=== PATIENT | female | born 1980 | race African-American/Black ===

== ENCOUNTER 2016-10-17 08:03 | Emergency (ER) | payer MEDICAID, OTHER ==
[~2016-10-17] VITALS: Ht 170.2 cm; Wt 57.0 kg
[~2016-10-17 08:03] MED LIST: CLONAZEPAM; CLONIDINE; IBUPROFEN; MIRTAZAPINE; NORETHINDRONE; OXYCODONE; PAXIL
[2016-10-17] MEDS ORDERED: MORPHINE SULFATE 4 MG/ML CPJ (NOT FOR IM USE) IV STA (08:43)
[2016-10-17] MEDS ORDERED: SODIUM CHLORIDE 0.9% 1,000 ML IV ONE (08:43)
[2016-10-17] MEDS ORDERED: ONDANSETRON HCL 4MG/2ML VIAL IV STA (08:43)
[2016-10-17 09:06] LABS: BASOPHILS % 0.7 % (0.0-2.0); EOSINOPHILS % 1.3 % (0.0-5.0); HEMATOCRIT. 36.8 % (36.0-48.0); HEMOGLOBIN. 12.3 g/dL (12.0-16.0); MEAN CORPUSCULAR HEMOGLOBIN 28.5 pg (28.0-32.0); MEAN CORPUSCULAR VOLUME 85.4 fL (81.0-99.0); MEAN PLATELET VOLUME 7.5 fl (7.4-10.4); MONOCYTES % 4.7 % (2.0-8.0); NEUTROPHILS % 68.3 % (40.0-76.0); PLATELET 284 x1000/uL (130-400); RED BLOOD CELL COUNT 4.31 mill/uL (4.2-5.4); RED CELL DISTRIBUTION WIDTH 14.6 % (11.6-14.6)
[2016-10-17 09:21] LABS: CARBON DIOXIDE 23 mEq/L (21-32); CHLORIDE 107 mEq/L (98-107)
[2016-10-17] MEDS ORDERED: ONDANSETRON HCL 4MG/2ML VIAL IM ONE (09:30)
[2016-10-17] MEDS ORDERED: MORPHINE SULFATE 10 MG/ML CPJ IM ONE (09:30)
[2016-10-17 12:09] LABS: GLUCOSE URINE NEGATIVE (NEGATIVE); KETONES URINE 1+ (NEGATIVE); LEUKOCYTE ESTERASE URINE NEGATIVE (NEGATIVE); NITRITE URINE NEGATIVE (NEGATIVE); OCCULT BLOOD URINE NEGATIVE (NEGATIVE); PH URINE 7.5 (4.5-8.0); PROTEIN URINE NEGATIVE (NEGATIVE); SPECIFIC GRAVITY URINE 1.022 (1.005-1.030)
[2016-10-17 12:10] LABS: CLARITY URINE CLEAR (CLEAR); COLOR URINE YELLOW (YELLOW)
[2016-10-17] MEDS ORDERED: PROMETHAZINE 5 ML/6.25 MG 118ML LIQ PO ONE (12:45)
[2016-10-17] MEDS ORDERED: HYDROCODONE/APAP 7.5/325MG 1 TAB TABLET PO ONE (12:45)
[2016-10-17 13:47] VITALS: BP 105/67
== END 2016-10-17 14:05 | disposition home or self-care (01) ==
LOC: ER 08:29
DX: R10.2 Pelvic and perineal pain (principal); R11.2 Nausea with vomiting, unspecified; F11.20 Opioid dependence, uncomplicated; Z72.0 Tobacco use; Z88.6 Allergy status to analgesic agent
CPT/HCPCS: 36415; 76830; 76856; 80053; 81001; 83690; 85025; 96372; 99285; J2270; J2405; J7030; Z7610; Q0169

== ENCOUNTER 2016-11-29 17:48 | Emergency (ER) | payer OTHER ==
[~2016-11-29] VITALS: Ht 167.6 cm; Wt 57.0 kg
[~2016-11-29 17:48] MED LIST changes: -CLONAZEPAM; -CLONIDINE; -OXYCODONE; -PAXIL
[2016-11-29 18:02] VITALS: BP 133/108
== END 2016-11-29 20:35 | disposition left against medical advice (07) ==
LOC: ER 17:48
DX: R10.9 Unspecified abdominal pain (principal); Z53.21 Procedure and treatment not carried out due to patient leaving prior to being seen by health care provider

== ENCOUNTER 2016-12-01 19:57 | Emergency (ER) | payer OTHER ==
[~2016-12-01] VITALS: Ht 170.2 cm; Wt 57.0 kg
[2016-12-01] MEDS ORDERED: SODIUM CHLORIDE 0.9% 1,000 ML IV ONE (22:49)
[2016-12-01] MEDS ORDERED: ONDANSETRON HCL 4MG/2ML VIAL IV STA (22:49)
[2016-12-01] MEDS ORDERED: MORPHINE SULFATE 4 MG/ML CPJ (NOT FOR IM USE) IV STA (22:49)
[2016-12-01 23:42] LABS: BASOPHILS % 0.9 % (0.0-2.0); EOSINOPHILS % 2.7 % (0.0-5.0); HEMATOCRIT. 32.1 % (36.0-48.0); HEMOGLOBIN. 10.7 g/dL (12.0-16.0); MEAN CORPUSCULAR HEMOGLOBIN 28.7 pg (28.0-32.0); MEAN CORPUSCULAR VOLUME 86.5 fL (81.0-99.0); MEAN PLATELET VOLUME 7.4 fl (7.4-10.4); NEUTROPHILS % 45.4 % (40.0-76.0); PLATELET 274 x1000/uL (130-400); RED BLOOD CELL COUNT 3.72 mill/uL (4.2-5.4)
[2016-12-01 23:53] LABS: CARBON DIOXIDE 30 mEq/L (21-32); CHLORIDE 107 mEq/L (98-107); ETHANOL BLOOD < 10 mg/dL
[2016-12-02] MEDS ORDERED: HYDROCODONE/ACETAMINOPHEN 5/325MG TABLET PO ONE
[2016-12-02 00:19] LABS: GLUCOSE URINE NEGATIVE (NEGATIVE); KETONES URINE NEGATIVE (NEGATIVE); LEUKOCYTE ESTERASE URINE NEGATIVE (NEGATIVE); NITRITE URINE NEGATIVE (NEGATIVE); OCCULT BLOOD URINE NEGATIVE (NEGATIVE); PROTEIN URINE NEGATIVE (NEGATIVE); SPECIFIC GRAVITY URINE 1.029 (1.005-1.030)
[2016-12-02 00:22] LABS: CLARITY URINE CLEAR (CLEAR); COLOR URINE YELLOW (YELLOW)
[2016-12-02 00:50] LABS: *AMPHETAMINES SCREEN URINE NEGATIVE (NEGATIVE); *BARBITURATES SCREEN URINE NEGATIVE (NEGATIVE); *BENZODIAZEPINES SCREEN URINE NEGATIVE (NEGATIVE); *COCAINE SCREEN URINE PRESUMTIVE POSITIVE (NEGATIVE); CANNABINOID URINE SCREEN NEGATIVE (NEGATIVE); METHADONE URINE SCREEN NEGATIVE (NEGATIVE); OPIATES URINE SCREEN PRESUMTIVE POSITIVE (NEGATIVE); PHENCYCLIDINE URINE SCREEN NEGATIVE (NEGATIVE)
[2016-12-02 02:00] VITALS: BP 110/64
[2016-12-02] MEDS ORDERED: CEFTRIAXONE SODIUM 250 MG/VIAL IM NR (02:30)
[2016-12-02] MEDS ORDERED: LIDOCAINE HCL 1% 20ML VIAL (Pyxis) INJ INFIL NR (02:30)
[2016-12-05 04:17] LABS: CHLAMYDIA TRACHOMATIS NAA Negative (Negative); NEISSERIA GONORRHOEAE NAA Negative (Negative)
== END 2016-12-02 02:00 | disposition home or self-care (01) ==
LOC: ER 20:44
DX: N73.9 Female pelvic inflammatory disease, unspecified (principal); N80.9 Endometriosis, unspecified; R03.0 Elevated blood-pressure reading, without diagnosis of hypertension; E86.0 Dehydration; F14.10 Cocaine abuse, uncomplicated; F11.10 Opioid abuse, uncomplicated; F12.90 Cannabis use, unspecified, uncomplicated; Z88.6 Allergy status to analgesic agent; Z90.89 Acquired absence of other organs; F17.210 Nicotine dependence, cigarettes, uncomplicated
CPT/HCPCS: 36415; 80053; 80305; 81003; 81025; 83690; 84702; 85025; 85610; 87210; 87491; 87591; 96361; 96372; 96374; 99284; C1893; G0482; J0696; J2405; J3490; J7030; Z7610

== ENCOUNTER 2016-12-10 07:04 | Emergency (ER) | payer OTHER ==
[~2016-12-10] VITALS: Ht 170.2 cm; Wt 57.0 kg
[2016-12-10 07:31] VITALS: BP 140/76
[2016-12-10 11:03] LABS: CLARITY URINE CLOUDY (CLEAR); COLOR URINE YELLOW (YELLOW); GLUCOSE URINE NEGATIVE (NEGATIVE); KETONES URINE TRACE (NEGATIVE); LEUKOCYTE ESTERASE URINE NEGATIVE (NEGATIVE); NITRITE URINE NEGATIVE (NEGATIVE); OCCULT BLOOD URINE 3+ (NEGATIVE); PH URINE 5.5 (4.5-8.0); PROTEIN URINE 1+ (NEGATIVE); SPECIFIC GRAVITY URINE 1.033 (1.005-1.030)
[2016-12-10 12:09] LABS: *AMPHETAMINES SCREEN URINE NEGATIVE (NEGATIVE); *BARBITURATES SCREEN URINE NEGATIVE (NEGATIVE); *BENZODIAZEPINES SCREEN URINE NEGATIVE (NEGATIVE); *COCAINE SCREEN URINE NEGATIVE (NEGATIVE); CANNABINOID URINE SCREEN NEGATIVE (NEGATIVE); METHADONE URINE SCREEN NEGATIVE (NEGATIVE); OPIATES URINE SCREEN NEGATIVE (NEGATIVE); PHENCYCLIDINE URINE SCREEN NEGATIVE (NEGATIVE)
== END 2016-12-10 15:53 | disposition left against medical advice (07) ==
LOC: ER 07:31
DX: Z53.21 Procedure and treatment not carried out due to patient leaving prior to being seen by health care provider (principal)
CPT/HCPCS: 80305; 81001

== ENCOUNTER 2016-12-24 18:29 | Emergency (ER) | payer OTHER ==
[~2016-12-24] VITALS: Ht 170.2 cm; Wt 57.0 kg
[2016-12-24 18:31] VITALS: BP 97/54
== END 2016-12-25 | disposition left against medical advice (07) ==
LOC: ER 21:43
DX: R11.2 Nausea with vomiting, unspecified (principal); Z53.21 Procedure and treatment not carried out due to patient leaving prior to being seen by health care provider

== ENCOUNTER 2016-12-25 18:32 | Inpatient (IN) | payer OTHER ==
[~2016-12-25] VITALS: Ht 168.9 cm; Wt 57.2 kg
[2016-12-26] MEDS ORDERED: ONDANSETRON HCL 4MG/2ML VIAL IV STA (01:44)
[2016-12-26] MEDS ORDERED: SODIUM CHLORIDE 0.9% 1,000 ML IV ONE (01:44)
[2016-12-26] MEDS ORDERED: MORPHINE SULFATE 4 MG/ML CPJ (NOT FOR IM USE) IV STA (01:44)
[2016-12-26] MEDS ORDERED: MORPHINE SULFATE 2 MG/ML CPJ (NOT FOR IM USE) IV SCH (02:00)
[2016-12-26 02:19] LABS: CHLORIDE 109 mEq/L (98-107)
[2016-12-26 02:23] LABS: BASOPHILS % 0.9 % (0.0-2.0); EOSINOPHILS % 1.5 % (0.0-5.0); HEMATOCRIT. 30.5 % (36.0-48.0); LYMPHOCYTES % 44.2 % (20.0-50.0); MEAN CORPUSCULAR HEMOGLOBIN 28.7 pg (28.0-32.0); MEAN CORPUSCULAR VOLUME 87.5 fL (81.0-99.0); MEAN PLATELET VOLUME 8.2 fl (7.4-10.4); MONOCYTES % 8.4 % (2.0-8.0); PLATELET 199 x1000/uL (130-400); RED BLOOD CELL COUNT 3.49 mill/uL (4.2-5.4); RED CELL DISTRIBUTION WIDTH 14.4 % (11.6-14.6)
[2016-12-26 02:28] LABS: CARBON DIOXIDE 25 mEq/L (21-32)
[2016-12-26 02:44] LABS: PROTHROMBIN TIME 10.1 sec (9.4-11.6)
[2016-12-26 02:53] LABS: HCG SCREEN NEGATIVE
[2016-12-26] MEDS ORDERED: POTASSIUM CHLORIDE 20MEQ TABLET SR PO ONE (06:30)
[2016-12-26 07:00] LABS: CLARITY URINE CLOUDY (CLEAR); COLOR URINE DARK YELLOW (YELLOW); GLUCOSE URINE NEGATIVE (NEGATIVE); KETONES URINE NEGATIVE (NEGATIVE); LEUKOCYTE ESTERASE URINE NEGATIVE (NEGATIVE); NITRITE URINE NEGATIVE (NEGATIVE); OCCULT BLOOD URINE NEGATIVE (NEGATIVE); PH URINE 6.5 (4.5-8.0); PROTEIN URINE 1+ (NEGATIVE); SPECIFIC GRAVITY URINE 1.045 (1.005-1.030)
[2016-12-26] MEDS ORDERED: MORPHINE SULFATE 4 MG/ML CPJ (NOT FOR IM USE) IV ONE (07:30)
[2016-12-26] MEDS ORDERED: MORPHINE SULFATE 2 MG/ML CPJ (NOT FOR IM USE) IV NR (07:50)
[2016-12-26 10:30] VITALS: BP 110/59
[2016-12-26 10:37] VITALS: BP 117/77
[2016-12-26] MEDS ORDERED: HYDROCODONE/ACETAMINOPHEN 10/325MG TABLET PO PRN (11:30)
[2016-12-26 12:00] VITALS: BP 120/56
[2016-12-26] MEDS ORDERED: TRAZODONE HCL 100MG TABLET PO SCH (21:00)
== END 2016-12-26 14:00 | disposition left against medical advice (07) | DRG 251 ==
LOC: ER 19:10 → 6EST 12-26 07:38 → EDBEDREQ 12-26 08:20 → ENRESERV 12-26 09:54
PROVIDERS: ADMIT Internal Medicine; ATTEND Internal Medicine
DX: R10.9 Unspecified abdominal pain (principal); E87.8 Other disorders of electrolyte and fluid balance, not elsewhere classified; E44.1 Mild protein-calorie malnutrition; F11.20 Opioid dependence, uncomplicated; E83.51 Hypocalcemia; F99 Mental disorder, not otherwise specified; Z53.21 Procedure and treatment not carried out due to patient leaving prior to being seen by health care provider; F17.200 Nicotine dependence, unspecified, uncomplicated; G89.29 Other chronic pain; Z90.49 Acquired absence of other specified parts of digestive tract; Z88.8 Allergy status to other drugs, medicaments and biological substances; Z79.899 Other long term (current) drug therapy; Z76.5 Malingerer [conscious simulation]
CPT/HCPCS: 36415; 76830; 76856; 80053; 81001; 83690; 84703; 85025; 85610; 99285; J2270; J2405; J7030

== ENCOUNTER 2016-12-26 14:21 | Emergency (ER) | payer OTHER ==
[~2016-12-26] VITALS: Ht 170.2 cm; Wt 57.0 kg
[~2016-12-26 14:21] MED LIST changes: -MIRTAZAPINE; -NORETHINDRONE
[2016-12-26 15:04] VITALS: BP 117/63
== END 2016-12-26 18:35 | disposition left against medical advice (07) ==
LOC: ER 14:28
DX: Z00.8 Encounter for other general examination (principal); Z53.21 Procedure and treatment not carried out due to patient leaving prior to being seen by health care provider

== ENCOUNTER 2017-02-02 14:56 | Emergency (ER) | payer MEDICAID, OTHER ==
[~2017-02-02] VITALS: Ht 170.2 cm; Wt 57.0 kg
[2017-02-02 21:53] LABS: BASOPHILS % 0.7 % (0.0-2.0); EOSINOPHILS % 0.3 % (0.0-5.0); HEMATOCRIT. 35.8 % (36.0-48.0); HEMOGLOBIN. 11.6 g/dL (12.0-16.0); LYMPHOCYTES % 29.2 % (20.0-50.0); MEAN CORPUSCULAR HEMOGLOBIN 28.3 pg (28.0-32.0); MEAN CORPUSCULAR VOLUME 87.8 fL (81.0-99.0); MEAN PLATELET VOLUME 7.3 fl (7.4-10.4); MONOCYTES % 5.7 % (2.0-8.0); NEUTROPHILS % 64.1 % (40.0-76.0); PLATELET 357 x1000/uL (130-400); RED BLOOD CELL COUNT 4.08 mill/uL (4.2-5.4); RED CELL DISTRIBUTION WIDTH 15.2 % (11.6-14.6)
[2017-02-02 21:54] LABS: CLARITY URINE CLEAR (CLEAR); COLOR URINE YELLOW (YELLOW); GLUCOSE URINE NEGATIVE (NEGATIVE); KETONES URINE 1+ (NEGATIVE); LEUKOCYTE ESTERASE URINE NEGATIVE (NEGATIVE); NITRITE URINE NEGATIVE (NEGATIVE); OCCULT BLOOD URINE NEGATIVE (NEGATIVE); PROTEIN URINE 1+ (NEGATIVE); SPECIFIC GRAVITY URINE 1.046 (1.005-1.030)
[2017-02-02 21:58] LABS: INR 1.1
[2017-02-02 22:15] LABS: CARBON DIOXIDE 25 mEq/L (21-32); CHLORIDE 104 mEq/L (98-107)
[2017-02-02] MEDS ORDERED: ACETAMINOPHEN 325MG TABLET PO STA (23:25)
[2017-02-02] MEDS ORDERED: ONDANSETRON HCL 4MG/2ML VIAL IV STA (23:25)
[2017-02-02] MEDS ORDERED: KETOROLAC 30MG/ML VIAL IV STA (23:25)
[2017-02-03] MEDS ORDERED: ONDANSETRON 4MG ODT PO ONE (00:15)
[2017-02-03] MEDS ORDERED: HYDROCODONE/ACETAMINOPHEN 5/325MG TABLET PO ONE (00:15)
[2017-02-03 00:40] VITALS: BP 113/62
== END 2017-02-03 00:42 | disposition home or self-care (01) ==
LOC: ER 15:16
DX: N80.9 Endometriosis, unspecified (principal); R10.30 Lower abdominal pain, unspecified; D64.9 Anemia, unspecified; Z88.6 Allergy status to analgesic agent; Z90.49 Acquired absence of other specified parts of digestive tract
CPT/HCPCS: 36415; 80053; 81001; 81025; 83690; 85025; 85610; 99284; Q0162; Z7610; J1885; J2405